=== PATIENT | male | born 1945 | race Hispanic/Latino ===

== ENCOUNTER 2017-12-21 01:18 | Emergency (ER) | payer OTHER ==
[2017-12-21] MEDS ORDERED: ACETAMINOPHEN 500 MG TAB ONE (02:38)
[2017-12-21 02:54] LABS: Absolute Lymphocytes (CBC) 2.5 K/uL (0.7-4.9); Absolute Monocytes 0.9 K/uL (0.1-1.3); Absolute Neutrophil 5.1 K/uL (1.8-8.0); Basophils % 1.1 % (0-1.3); Eosinophils % 5.5 % (0-4.4); Lymphocytes % 27.7 % (15.3-44.8); MCH 31.5 pg (27.0-35.0); MCV 91.8 fL (80-100); MPV 9.4 fL (7.6-11.3); Monocytes % 9.6 % (3.3-12.3); RBC Red Blood Cell Count 4.58 M/uL (4.33-5.43)
[2017-12-21 03:08] LABS: Urine Bacteria <20 /HPF (NONE SEEN); Urine Culture Reflex Order NOT NEEDED; Urine RBC NONE SEEN /HPF (NONE SEEN)
[2017-12-21 03:10] LABS: Albumin 3.9 g/dL (3.4-5.0); Bilirubin Direct 0.1 mg/dL (0-0.2); Bilirubin Total 0.4 mg/dL (0.2-1.0); Magnesium 2.3 mg/dL (1.8-2.4); Potassium 3.9 mmol/L (3.5-5.1); Protein, Total 7.6 g/dL (6.4-8.2)
[2017-12-21 03:11] LABS: Urine Blood NEGATIVE (NEG); Urine Glucose TRACE (NEG); Urine Protein NEGATIVE (NEG); Urine Specific Gravity 1.015 (1.005-1.030); Urine pH 5.5 (5.0-7.0)
--- NOTE | 2017-12-21 03:15 | ER ---
Nurse's Notes [facility] Name: Mehul Bourgeois Age: 72 yrs Sex: Male : 1945 Arrival Date: 12/21/2017 Time: 01:20 Bed 17 Private MD: Omar Vital R Diagnosis: Hypertension Presentation: 12/21 01:40 Presenting complaint: Patient states: He had a blood pressure medication change about ea two days ago. Pt reports he started having headaches after being taken of medication. Pt states he checked his blood pressure at home and was 100/95. Transition of care: patient was not received from another setting of care. Onset of symptoms was December 21, 2017. Risk Assessment: Do you want to hurt yourself or someone else? Patient reports no desire to harm self or others. Initial Sepsis Screen: Does the patient meet any 2 criteria? No. Patient's initial sepsis screen is negative. Does the patient have a suspected source of infection? No. Patient's initial sepsis screen is negative. Care prior to arrival: Medication(s) given: Motrin, \T\ 1900. 01:40 Method Of Arrival: Ambulatory ea 01:40 Acuity: GRISELDA 3 ea Triage Assessment: 01:46 General: Appears uncomfortable, Behavior is calm, cooperative, appropriate for age. ea Pain: Complains of pain in headache Pain radiates to neck Pain currently is 8 out of 10 on a pain scale. Quality of pain is described as aching, Pain began 2-3 days ago. EENT: No signs and/or symptoms were reported regarding the EENT system. Neuro: Level of Consciousness is awake, alert, obeys commands, Oriented to person, place, time, situation, Reports headache Denies blurred vision dizziness. Cardiovascular: Patient's skin is warm and dry. Respiratory: Airway is patent Respiratory effort is even, unlabored, Respiratory pattern is regular, symmetrical. Derm: Skin is dry, Skin is normal, Skin temperature is warm. Historical: - Allergies: :52 No Known Allergies; ea - Home Meds: 01:52 losartan 100 mg oral tab 1 tab once daily [Active]; omeprazole 40 mg Oral cpDR 1 cap ea once daily [Active]; ezetimibe oral oral 1 tab once daily [Active]; amlodipine 10 mg tab 1 tab once daily [Active]; glimepiride 1 mg Oral tab 2 tabs once daily [Active]; metformin 500 mg Oral Tb24 1 tab once daily [Active]; - PMHx: 01:52 Diabetes - NIDDM; Hypertension; ea - PSHx: 01:52 Heart stents; left leg surgery; ea - Immunization history:: Adult Immunizations up to date. - Social history:: Smoking status: Patient/guardian denies using tobacco. - Ebola Screening: : No symptoms or risks identified at this time. - Family history:: not pertinent. - Hospitalizations: : No recent hospitalization is reported. Screenin:53 Abuse screen: Denies threats or abuse. Nutritional screening: No deficits noted. ea Tuberculosis screening: No symptoms or risk factors identified. Fall Risk None identified. Assessment: 01:50 General: Appears uncomfortable, Behavior is calm, cooperative, appropriate for age, jd3 Reports high blood pressure after switching medication 3 days ago. Pain: Complains of pain in head Quality of pain is described as aching. Neuro: Level of Consciousness is awake, alert, obeys commands, Oriented to person, place, time, situation, Appropriate for age Moves all extremities. Gait is steady, Pupils are PERRLA. Cardiovascular: Capillary refill < 3 seconds Patient's skin is warm and dry. Respiratory: Airway is patent Respiratory effort is even, unlabored, Respiratory pattern is regular, symmetrical. GI: Abdomen is round Patient currently denies diarrhea, nausea, vomiting. : No signs and/or symptoms were reported regarding the genitourinary system. EENT: No signs and/or symptoms were reported regarding the EENT system. Derm: Skin is intact, Skin is dry, Skin is normal, Skin temperature is warm. Musculoskeletal: Circulation, motion, and sensation intact. Range of motion: intact in all extremities. 02:42 Reassessment: Patient appears in no apparent distress at this time. Patient and/or jd3 family updated on plan of care and expected duration. Pain level reassessed. Patient is alert, oriented x 3, equal unlabored respirations, skin warm/dry/pink. 03:30 Reassessment: Patient and/or family updated on plan of care and expected duration. Pain ea level reassessed. Patient is alert, oriented x 3, equal unlabored respirations, skin warm/dry/pink. Discharge instructions given to patient, verbalized the understanding of instruction. Patient states feeling better. Patient states symptoms have improved. Vital Signs: 01:45 BP 200 / 86; Pulse 71; Resp 18 S; Pulse Ox 98% on R/A; Weight 100.24 kg; Height 5 ft. 7 ea in. (170.18 cm); Pain 8/10; 02:42 BP 172 / 79; Pulse 64; Resp 16 S; Pulse Ox 95% on R/A; jd3 03:30 BP 172 / 80; Pulse 67; Resp 17; Temp 98; Pulse Ox 97% ; Pain 2/10; ea 01:45 Body Mass Index 34.61 (100.24 kg, 170.18 cm) ea ED Course: 01:20 Patient arrived in ED. ds1 01:22 Omar Vital MD is Private Physician. ds1 01:39 Emiliano Bernabe RN is Primary Nurse. jd3 01:40 Aly Monteiro MD is Attending Physician. wa 01:45 Triage completed. ea 01:53 Patient has correct armband on for positive identification. Bed in low position. Call ea light in reach. Side rails up X 1. 01:53 Patient placed in an exam room, on a stretcher, on pulse oximetry. ea 01:53 Arm band placed on. jd3 02:42 Inserted saline lock: 20 gauge in right antecubital area, using aseptic technique. ea Blood collected. 03:27 No provider procedures requiring assistance completed. IV discontinued, intact, jd3 bleeding controlled, No redness/swelling at site. Pressure dressing applied. Administered Medications: 02:38 Drug: Tylenol 1000 mg Route: PO; jd3 03:21 Follow up: Response: No adverse reaction; Marked relief of symptoms jd3 Outcome: 03:15 Discharge ordered by . wa 03:31 Discharged to home ambulatory, with significant other. ea 03:31 Condition: improved 03:31 Discharge instructions given to patient, Instructed on discharge instructions, follow up and referral plans. Demonstrated understanding of instructions, follow-up care. 03:33 Patient left the ED. ea Signatures: Lissette Iyer ds1 Verna Corrigan RN RN ea Appiah, William, MD MD wa Davies, Jonathon, RN RN jcorey
--- NOTE | 2017-12-21 03:16 | EDPHYS ---
Physician Documentation [facility] Name: Mehul Bourgeois Age: 72 yrs Sex: Male : 1945 Arrival Date: 12/21/2017 Time: 01:20 Bed 17 Private MD: Omar Vital R ED Physician Aly Monteiro HPI: 12/21 03:09 This 72 yrs old Male presents to ER via Ambulatory with complaints of High wa Blood Pressure. 03:09 The patient has elevated blood pressure and discovered this states advised by his PMD wa to keep an eye on his BP since starting new med atorvosartan. states HAs for the past few days since began that med. santana felt GUY. took BP and was elevated. still has a slight GUY. denies dizziness, SOB, CP. . Onset: The symptoms/episode began/occurred today. Modifying factors: The symptoms are aggravated by none, The symptoms are alleviated by none. Associated signs and symptoms: The patient has no apparent associated signs or symptoms. Severity of symptoms: At its worst the blood pressure was see nursing record. The patient has not experienced similar symptoms in the past. The patient has not recently seen a physician. Historical: - Allergies: 01:52 No Known Allergies; ea - Home Meds: 01:52 losartan 100 mg oral tab 1 tab once daily [Active]; omeprazole 40 mg Oral cpDR 1 cap ea once daily [Active]; ezetimibe oral oral 1 tab once daily [Active]; amlodipine 10 mg tab 1 tab once daily [Active]; glimepiride 1 mg Oral tab 2 tabs once daily [Active]; metformin 500 mg Oral Tb24 1 tab once daily [Active]; - PMHx: 01:52 Diabetes - NIDDM; Hypertension; ea - PSHx: 01:52 Heart stents; left leg surgery; ea - Immunization history:: Adult Immunizations up to date. - Social history:: Smoking status: Patient/guardian denies using tobacco. - Ebola Screening: : No symptoms or risks identified at this time. - Family history:: not pertinent. - Hospitalizations: : No recent hospitalization is reported. ROS: 03:12 Constitutional: Negative for fever, chills, and weight loss, Eyes: Negative for injury, wa pain, redness, and discharge, ENT: Negative for injury, pain, and discharge, Neck: Negative for injury, pain, and swelling, Cardiovascular: Negative for chest pain, palpitations, and edema, Respiratory: Negative for shortness of breath, cough, wheezing, and pleuritic chest pain, Abdomen/GI: Negative for abdominal pain, nausea, vomiting, diarrhea, and constipation, Back: Negative for injury and pain, : Negative for injury, bleeding, discharge, and swelling, MS/Extremity: Negative for injury and deformity, Skin: Negative for injury, rash, and discoloration. 03:12 Neuro: Positive for headache, Negative for altered mental status, dizziness, gait disturbance. 03:12 All other systems are negative. Exam: 03:12 Constitutional: This is a well developed, well nourished patient who is awake, alert, wa and in no acute distress. Head/Face: Normocephalic, atraumatic. Eyes: Pupils equal round and reactive to light, extra-ocular motions intact. Lids and lashes normal. Conjunctiva and sclera are non-icteric and not injected. Cornea within normal limits. Periorbital areas with no swelling, redness, or edema. ENT: Nares patent. No nasal discharge, no septal abnormalities noted. Tympanic membranes are normal and external auditory canals are clear. Oropharynx with no redness, swelling, or masses, exudates, or evidence of obstruction, uvula midline. Mucous membranes moist. Neck: Trachea midline, no thyromegaly or masses palpated, and no cervical lymphadenopathy. Supple, full range of motion without nuchal rigidity, or vertebral point tenderness. No Meningismus. Chest/axilla: Normal chest wall appearance and motion. Nontender with no deformity. No lesions are appreciated. Cardiovascular: Regular rate and rhythm with a normal S1 and S2. No gallops, murmurs, or rubs. Normal PMI, no JVD. No pulse deficits. Respiratory: Lungs have equal breath sounds bilaterally, clear to auscultation and percussion. No rales, rhonchi or wheezes noted. No increased work of breathing, no retractions or nasal flaring. Abdomen/GI: Soft, non-tender, with normal bowel sounds. No distension or tympany. No guarding or rebound. No evidence of tenderness throughout. Back: No spinal tenderness. No costovertebral tenderness. Full range of motion. Skin: Warm, dry with normal turgor. Normal color with no rashes, no lesions, and no evidence of cellulitis. MS/ Extremity: Pulses equal, no cyanosis. Neurovascular intact. Full, normal range of motion. Neuro: Awake and alert, GCS 15, oriented to person, place, time, and situation. Cranial nerves II-XII grossly intact. Motor strength 5/5 in all extremities. Sensory grossly intact. Cerebellar exam normal. Normal gait. Psych: Awake, alert, with orientation to person, place and time. Behavior, mood, and affect are within normal limits. Vital Signs: 01:45 BP 200 / 86; Pulse 71; Resp 18 S; Pulse Ox 98% on R/A; Weight 100.24 kg; Height 5 ft. 7 ea in. (170.18 cm); Pain 8/10; 02:42 BP 172 / 79; Pulse 64; Resp 16 S; Pulse Ox 95% on R/A; jd3 03:30 BP 172 / 80; Pulse 67; Resp 17; Temp 98; Pulse Ox 97% ; Pain 2/10; ea 01:45 Body Mass Index 34.61 (100.24 kg, 170.18 cm) ea MDM: 01:40 Patient medically screened. fl 03:13 Data reviewed: lab test result(s). Test interpretation: by ED physician or midlevel fl provider: noted for hyperglycemia, glucose 227. AST 58 (elevated). Response to treatment: the patient's symptoms have markedly improved after treatment. 12/21 02:20 Order name: Basic Metabolic Panel; Complete Time: 03:13 fl 12/21 02:20 Order name: CBC with Diff; Complete Time: 03:13 fl 12/21 02:20 Order name: LFT's; Complete Time: 03:13 fl 12/21 02:20 Order name: Magnesium; Complete Time: 03:13 fl 12/21 02:20 Order name: Urine Microscopic Only; Complete Time: 03:13 fl 12/21 02:57 Order name: Urine Dipstick--Ancillary (enter results); Complete Time: 03:13 [facility] 12/21 02:20 Order name: Cardiac monitoring; Complete Time: 02:32 fl 12/21 02:20 Order name: IV Saline Lock; Complete Time: 02:38 fl 12/21 02:20 Order name: Urine Dipstick-Ancillary (obtain specimen); Complete Time: 02:53 wa Administered Medications: 02:38 Drug: Tylenol 1000 mg Route: PO; jd3 03:21 Follow up: Response: No adverse reaction; Marked relief of symptoms jd3 Disposition: 12/21/17 03:15 Discharged to Home. Impression: Hypertension. - Condition is Stable. - Discharge Instructions: Hypertension. - Medication Reconciliation Form, Thank You Letter, Antibiotic Education, Prescription Opioid Use form. - Follow up: Private Physician; When: 1 - 2 days; Reason: Re-evaluation by your physician. - Problem is new. - Symptoms have improved. Signatures: Dispatcher [employer] EDMS Verna Corrigan RN RN ea Appiah, William, MD MD wa Davies, Jonathon RN RN jd3 Corrections: (The following items were deleted from the chart) 03:33 03:15 12/21/2017 03:15 Discharged to Home. Impression: Hypertension. Condition is ea Stable. Forms are Medication Reconciliation Form, Thank You Letter, Antibiotic Education, Prescription Opioid Use. Follow up: Private Physician; When: 1 - 2 days; Reason: Re-evaluation by your physician. Problem is new. Symptoms have improved. wa
== END 2017-12-21 03:33 | disposition home or self-care (01) ==
LOC: ER 01:18
DX: I10 Essential (primary) hypertension (principal); E11.65 Type 2 diabetes mellitus with hyperglycemia; Z79.84 Long term (current) use of oral hypoglycemic drugs
CPT/HCPCS: 36415; 80048; 80076; 81003; 81015; 83735; 85025; 99284